=== PATIENT | male | born 1960 | race Caucasian/White ===

== ENCOUNTER 2020-02-03 09:20 | Emergency (ER) | payer OTHER ==
[~2020-02-03] VITALS: Ht 180.3 cm; Wt 72.6 kg
[2020-02-03] MEDS ORDERED: LISI20 PO (09:43)
[2020-02-04] MEDS ORDERED: ONDA4ODT SL (13:42)
[2020-02-04] MEDS ORDERED: IBUP400 PO (13:42)
== END 2020-02-03 12:27 | disposition home or self-care (01) ==
LOC: ER 09:20
DX: M54.6 Pain in thoracic spine (principal); I10 Essential (primary) hypertension; F17.210 Nicotine dependence, cigarettes, uncomplicated; V56.5XXA Driver of pick-up truck or van injured in collision with other nonmotor vehicle in traffic accident, initial encounter; Y92.410 Unspecified street and highway as the place of occurrence of the external cause
CPT/HCPCS: 71046; 99284-25

== ENCOUNTER 2020-02-04 10:24 | Emergency (ER) | payer OTHER ==
[~2020-02-04] VITALS: Ht 180.3 cm; Wt 72.6 kg
[~2020-02-04 10:24] MED LIST: LISI20 PO
[2020-02-04] MEDS ORDERED: ONDA4ODT SL (13:42)
[2020-02-04] MEDS ORDERED: IBUP400 PO (13:42)
== END 2020-02-04 14:25 | disposition home or self-care (01) ==
LOC: ER 10:24
DX: F43.10 Post-traumatic stress disorder, unspecified (principal); F41.9 Anxiety disorder, unspecified; M25.511 Pain in right shoulder; I10 Essential (primary) hypertension; F17.210 Nicotine dependence, cigarettes, uncomplicated; Z79.899 Other long term (current) drug therapy; V57.5XXA Driver of pick-up truck or van injured in collision with fixed or stationary object in traffic accident, initial encounter
CPT/HCPCS: 70450; 99284-25